=== PATIENT | female | born 2000 | race Caucasian/White ===

== ENCOUNTER 2022-09-12 09:29 | Emergency (ER) | payer OTHER ==
[~2022-09-12] VITALS: Ht 172.7 cm; Wt 72.6 kg
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
[2022-09-12] MEDS ORDERED: ACETAMINOPHEN ES 500 MG TABLET ONE (09:57)
[2022-09-12] MEDS ORDERED: ACETAMINOPHEN ES 500 MG TABLET PO ONE (10:00)
[2022-09-12] MEDS ORDERED: IBUP-1957 PO (11:25)
--- NOTE | 2022-09-12 11:34 | NUR ---
Patient discharged to home in stable condition. Written and verbal after care instructions given. Patient verbalizes understanding of instruction.
[2022-09-12 11:35] VITALS: BP 143/79
== END 2022-09-12 11:36 | disposition home or self-care (01) ==
LOC: ER 09:29
DX: S13.8XXA Sprain of joints and ligaments of other parts of neck, initial encounter (principal); S63.592A Other specified sprain of left wrist, initial encounter; S76.012A Strain of muscle, fascia and tendon of left hip, initial encounter; Z79.899 Other long term (current) drug therapy; V89.2XXA Person injured in unspecified motor-vehicle accident, traffic, initial encounter; Y93.89 Activity, other specified; Y92.89 Other specified places as the place of occurrence of the external cause; Y99.8 Other external cause status
CPT/HCPCS: 72040-TC; 72170-TC; 73110; 84703-TC